=== PATIENT | female | born 1950 | race Caucasian/White ===

== ENCOUNTER 2016-03-13 07:29 | Outpatient (CLI) | payer OTHER ==
[~2016-03-13 07:29] MED LIST: ANASTROZOLE1 MG PO; ASPIRIN CHILDRE81 MG PO; BENZONATATE100 MG PO; COREG3.125 MG PO; DIPHENHYDRAMINE25 M1 PO; DOCUSATE SODIU100 MG PO; EQ LORATADINE10 MG PO; FLUOXETINE HCL20 MG PO; FUROSEMIDE20 MG PO; IBUPROFEN400 MG PO; LANOXIN EQUIVALENT PO; LEVAQUIN500 MG PO; LIDODERM5 % TOP; LISINOPRIL2.5 MG PO; NEXIUM2.5 MG PO; PHENERGAN PO; POTASSIUM CHLO20 ME4 PO; SPIRONOLACTONE25 MG PO; TOPROL XL50 MG PO; TRANSDERM-SCOP1.5 MG TOP; TUMS500 MG PO; [UNRECOGNIZED DRUG - OTHER] PO
== END 2016-03-13 23:00 ==
LOC: LAB SRH 07:29
DX: C50.912 Malignant neoplasm of unspecified site of left female breast (principal); C79.51 Secondary malignant neoplasm of bone; C78.00 Secondary malignant neoplasm of unspecified lung
CPT/HCPCS: 90074; 90100; 90272; 95059

== ENCOUNTER 2016-03-20 07:46 | Outpatient (CLI) | payer OTHER | END 2016-03-20 23:00 | LOC: LAB SRH 07:46 | DX: C50.912 Malignant neoplasm of unspecified site of left female breast (principal); C79.51 Secondary malignant neoplasm of bone; C78.00 Secondary malignant neoplasm of unspecified lung | CPT/HCPCS: 90074; 90100; 95059 ==

== ENCOUNTER 2016-03-26 11:55 | Outpatient (CLI) | payer OTHER | END 2016-03-26 23:00 | LOC: LAB SRH 11:55 | DX: C50.912 Malignant neoplasm of unspecified site of left female breast (principal); C79.51 Secondary malignant neoplasm of bone; C78.00 Secondary malignant neoplasm of unspecified lung | CPT/HCPCS: 90100; 90272; 95059 ==

== ENCOUNTER 2016-03-26 12:01 | Outpatient (CLI) | payer OTHER | END 2016-03-26 23:00 | LOC: LAB SRH 12:01 | DX: R79.89 Other specified abnormal findings of blood chemistry (principal) | CPT/HCPCS: 90074; 90100; 90272; 92715; 95059 ==

== ENCOUNTER 2016-04-02 15:58 | Outpatient (CLI) | payer OTHER | END 2016-04-02 23:00 | LOC: LAB SRH 15:58 | DX: C50.912 Malignant neoplasm of unspecified site of left female breast (principal); C79.51 Secondary malignant neoplasm of bone; C78.00 Secondary malignant neoplasm of unspecified lung | CPT/HCPCS: 90074; 90100; 90272; 95059 ==

== ENCOUNTER 2016-04-09 14:51 | Outpatient (CLI) | payer OTHER | END 2016-04-09 23:00 | LOC: LAB SRH 14:51 | DX: C50.912 Malignant neoplasm of unspecified site of left female breast (principal); C79.51 Secondary malignant neoplasm of bone; C78.00 Secondary malignant neoplasm of unspecified lung | CPT/HCPCS: 90074; 90100; 95059 ==

== ENCOUNTER 2016-04-11 15:10 | Emergency (ER) | payer OTHER ==
--- NOTE | 2016-04-11 16:39 | ED NURSING NOTES ---
Clinical Report - Nurses [facility] [address] [place] [address] 04/11/2016 15:11 [id number] Triage time 1514. Acuity: LEVEL 3. Chief Complaint: INJURY TO THE LEFT LEG. 15:14. MIKE COMA SCORE: Mike Coma Scale: 15- eyes open spontaneously (4); best verbal response- oriented x 4 (5); best motor response- obeys commands (6). --15:26 Yesenia Galvan R.N. 15:14 04/11/16. BP: 94/54. HR: 107. RR: 20. O2 saturation: 100%. Temp: 98.4 F. Pain level now: 0/10. --15:26 Yesenia Galvan R.N. Acuity: LEVEL 4. --15:42 Naima Bee R.N. Weight: 66.2 kg. Height/Length: 60 inches. BMI: 28.5. --15:22 Yesenia Galvan R.N. Medications Anastrozole Oral (Tablet 1 mg), at bedtime. Aspirin Low Dose Oral (Tablet Delayed Release 81 mg) 1 tablet. Carvedilol 3.125mg BID. Docusate Sodium Oral (Capsule 100 mg) 2 capsules, in the evening. FLUoxetine HCl Oral 60mg, at bedtime. Montelukast Sodium Oral (Tablet 10 mg), at bedtime. Nexium 24HR Oral 22.3mg, at bedtime. --15:21 Yesenia Galvan R.N. Allergies Erythromycin. Penicillins. Sulfa Antibiotics. Teramycin?. [place]. --15:21 Yesenia Galvan R.N. History Arrived by private vehicle. Historian: patient. Unaccompanied. Mechanism of injury: (dog bite to right calf). ( Pt has state 4 bone cancer, has low platelets, and is scheduled for 2 unit blood transfusion on Wednesday--worried about bleeding internally). SOCIAL HX: Never smoker. Occasional alcohol use. No drug use. --15:26 Yesenia Galvan R.N. PROBLEMS: Pleural Effusion. Bronchitis. Metastases to bone. Breast Cancer. Sciatica. Muscle spasms. Gastroesophageal Reflux Disease. --15:22 Yesenia Galvan R.N. ADDITIONAL SURGERIES: Hysterectomy. Lumpectomy of breast. Masiodectomy R ear. Mastoidectomy. --15:22 Yesenia Galvan R.N. Interventions ID band on patient. To treatment room. --15:26 Yesenia Galvan R.N. ID band on patient. To treatment room. --15:42 Naima Bee R.N. PHYSICAL ASSESSMENT 15:41 04/11/16. To room via wheelchair. GENERAL / NEURO / PSYCH: Oriented X 4. Alert. Appears in no acute distress. EXTREMITIES: Capillary refill is less than 2 seconds in the extremities. Extremity pulses are within normal limits. Neuro-vascular status intact to the extremity. Normal gait. Left leg: tenderness and ecchymosis of the lower leg. SKIN: Skin intact. Skin is warm and dry. --15:41 Naima Bee R.N. NURSING PROGRESS NOTES 15:20. ( 6 inch corrina placed over area as pressure dressing, no free bleeding noted, hematoma present). --15:27 Yesenia Galvan R.N. 15:42 04/11/16. Two patient identifiers checked. Call light placed in reach. Side rails up x 1. Bed placed in lowest position. Brakes of bed on. Patient ready for evaluation- chart flagged and ED physician and MARK UP DESIGNER notified. --15:42 Naima Bee R.N. DISPOSITION / DISCHARGE Departure time: 1654Apr 11 2016. Condition at departure: improved and stable. No learning barriers present. Discharge instructions provided and reviewed with the patient. Patient verbalized understanding. Written instructions provided in Yemeni. The patient was discharged by the nurse practitioner. She was discharged home. She left the Emergency Department in a wheelchair and via private vehicle. Patient driving. --17:52 Naima Bee R.N. 17:51 04/11/16. BP: 99/68. HR: 104. RR: 18. O2 saturation: 100% on room air. Temp: 98.6 F (oral). Pain level now: 0/10. --17:52 Naima Bee R.N. Locked/Released at 04/11/2016 17:53 by Naima Bee R.N.
--- NOTE | 2016-04-11 16:39 | ED NURSING NOTES ---
Clinical Report - Nurses [facility] [address] [place] [address] 04/11/2016 15:11 Patient: NORIS AUSTIN [facility] [id number] TRIAGE Triage time 1514. Acuity: LEVEL 3. Chief Complaint: INJURY TO THE LEFT LEG. 15:14. MIKE COMA SCORE: Mike Coma Scale: 15- eyes open spontaneously (4); best verbal response- oriented x 4 (5); best motor response- obeys commands (6). --15:26 Yesenia Galvan R.N. 15:14 04/11/16. BP: 94/54. HR: 107. RR: 20. O2 saturation: 100%. Temp: 98.4 F. Pain level now: 0/10. --15:26 Yesenia Galvan R.N. Acuity: LEVEL 4. --15:42 Naima Bee R.N. Weight: 66.2 kg. Height/Length: 60 inches. BMI: 28.5. --15:22 Yesenia Galvan R.N. Medications Anastrozole Oral (Tablet 1 mg), at bedtime. Aspirin Low Dose Oral (Tablet Delayed Release 81 mg) 1 tablet. Carvedilol 3.125mg BID. Docusate Sodium Oral (Capsule 100 mg) 2 capsules, in the evening. FLUoxetine HCl Oral 60mg, at bedtime. Montelukast Sodium Oral (Tablet 10 mg), at bedtime. Nexium 24HR Oral 22.3mg, at bedtime. --15:21 Yesenia Galvan R.N. Allergies Erythromycin. Penicillins. Sulfa Antibiotics. Teramycin?. [place]. --15:21 Yesenia Galvan R.N. History Arrived by private vehicle. Historian: patient. Unaccompanied. Mechanism of injury: (dog bite to right calf). ( Pt has state 4 bone cancer, has low platelets, and is scheduled for 2 unit blood transfusion on Wednesday--worried about bleeding internally). SOCIAL HX: Never smoker. Occasional alcohol use. No drug use. --15:26 Yesenia Galvan R.N. PROBLEMS: Pleural Effusion. Bronchitis. Metastases to bone. Breast Cancer. Sciatica. Muscle spasms. Gastroesophageal Reflux Disease. --15:22 Yesenia Galvan R.N. ADDITIONAL SURGERIES: Hysterectomy. Lumpectomy of breast. Masiodectomy R ear. Mastoidectomy. --15:22 Yesenia Galvan R.N. Interventions ID band on patient. To treatment room. --15:26 Yesenia Galvan R.N. ID band on patient. To treatment room. --15:42 Naima Bee R.N. PHYSICAL ASSESSMENT 15:41 04/11/16. To room via wheelchair. GENERAL / NEURO / PSYCH: Oriented X 4. Alert. Appears in no acute distress. EXTREMITIES: Capillary refill is less than 2 seconds in the extremities. Extremity pulses are within normal limits. Neuro-vascular status intact to the extremity. Normal gait. Left leg: tenderness and ecchymosis of the lower leg. SKIN: Skin intact. Skin is warm and dry. --15:41 Naima Bee R.N. NURSING PROGRESS NOTES 15:20. ( 6 inch corrina placed over area as pressure dressing, no free bleeding noted, hematoma present). --15:27 Yesenia Galvan R.N. 15:42 04/11/16. Two patient identifiers checked. Call light placed in reach. Side rails up x 1. Bed placed in lowest position. Brakes of bed on. Patient ready for evaluation- chart flagged and ED physician and BIAS CUTTER notified. --15:42 Naima Bee R.N. DISPOSITION / DISCHARGE Departure time: 1654Apr 11 2016. Condition at departure: improved and stable. No learning barriers present. Discharge instructions provided and reviewed with the patient. Patient verbalized understanding. Written instructions provided in Niuean. The patient was discharged by the nurse practitioner. She was discharged home. She left the Emergency Department in a wheelchair and via private vehicle. Patient driving. --17:52 Naima Bee R.N. 17:51 04/11/16. BP: 99/68. HR: 104. RR: 18. O2 saturation: 100% on room air. Temp: 98.6 F (oral). Pain level now: 0/10. --17:52 Naima Bee R.N. Locked/Released at 04/11/2016 17:53 by Naima Bee R.N.
--- NOTE | 2016-04-11 16:39 | ED CLINICAL REPORT ---
Clinical Report - Physicians/Mid Levels [facility] [address] [place] [address] 04/11/2016 15:11 Patient: NORIS AUSTIN Time Seen: 16:18; initial patient contact, initial documentation, patient care assumed. Arrived- By private vehicle. Historian- patient. HISTORY OF PRESENT ILLNESS Location of injuries- left leg. Chief Complaint: DOG BITE. The injury occurred just prior to arrival. The animal reportedly appeared well, is up to date on immunizations and can be observed for ten days. Occurred at home. This was an "unprovoked" attack. (holding dog while daughter vaccuumed, dog spooked, dog was dropped or jumped out of arms and bit leg). No fainting episodes or difficulty breathing. 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 REVIEW OF SYSTEMS No swelling, numbness, difficulty breathing or chest pain. All systems otherwise negative, except as recorded above. PAST HISTORY See nurses notes. PROBLEMS: Pleural Effusion. Bronchitis. Metastases to bone. Breast Cancer. Sciatica. Muscle spasms. Gastroesophageal Reflux Disease. --15:22 Yesenia Galvan R.N. ADDITIONAL SURGERIES: Hysterectomy. Lumpectomy of breast. Masiodectomy R ear. Mastoidectomy. --15:22 Yesenia Galvan R.N. SOCIAL HISTORY Never smoker. Occasional alcohol use. No drug use. No recent travel. Is a local resident. FAMILY HISTORY No significant family medical history. ADDITIONAL NOTES The nursing notes have been reviewed with agreement regarding the chief complaint, HPI, ROS, PMH and patient medications and allergies. PHYSICAL EXAM Vital Signs: 04/11/2016 15:14 BP: 94/54. HR: 107. RR: 20. O2 saturation: 100%. Temp: 98.4 F. Pain level now: 0/10. Have been reviewed as abnormal and appear to be correct. Hypotensive. Tachycardic. Respiratory rate normal. Temperature normal. Appearance: Alert. Oriented X3. No acute distress. Head: Head normal on inspection and non-tender. Eyes: Eyes normal inspection. Skin: Skin intact. Skin warm and dry. Normal skin color. Normal skin turgor. Extremities: Abnormal inspection. Extremities not atraumatic. Pelvis stable. Left leg: mild tenderness and small ecchymosis located in the posterior and medial aspect of mid leg. Neurovascular intact distally. (contusion noted to back of leg, no break in skin, skin intact). No erythema, swelling, laceration, abrasion or puncture wound. No foreign body or deformity. No limitation of weight bearing. No lower extremity edema. Neuro: Oriented X 3. No motor deficit. No sensory deficit. PROGRESS AND PROCEDURES Patient counseled in person regarding the patient's stable condition and diagnosis. 16:38. Differential Diagnosis: Other possible considerations: dog bite, contusion, pw, cellulitis. Above considerations are based on history and physical exam. Differential diagnosis was discussed with patient. Disposition: Discharged home in good and improved condition (16:38). Condition: good and stable. CLINICAL IMPRESSION Single contusion to the left lower leg.No hematoma or skin abrasion. Single dog bite to the left lower leg. INSTRUCTIONS Wear elastic wrap (Archie wrap) as directed for three days until better. Elevate affected areas above chest level for two days until better. Warnings: GENERAL WARNINGS: Return or contact your physician immediately if your condition worsens or changes unexpectedly, if not improving as expected, or if other problems arise. Specifically return if bleeding worsens. Follow-up: Follow up with your doctor in about two days even if well. Call for an appointment. Summary of care provided to patient. Understanding of the discharge instructions verbalized by patient. (Electronically signed by Radha Hewitt A.R.N.P. 04/11/2016 17:12)
--- NOTE | 2016-04-11 16:39 | ED CLINICAL REPORT ---
Clinical Report - Physicians/Mid Levels [facility] [address] [place] [address] 04/11/2016 15:11 Patient: NORIS AUSTIN Time Seen: 16:18; initial patient contact, initial documentation, patient care assumed. Arrived- By private vehicle. Historian- patient. HISTORY OF PRESENT ILLNESS Location of injuries- left leg. Chief Complaint: DOG BITE. The injury occurred just prior to arrival. The animal reportedly appeared well, is up to date on immunizations and can be observed for ten days. Occurred at home. This was an "unprovoked" attack. (holding dog while daughter vaccuumed, dog spooked, dog was dropped or jumped out of arms and bit leg). No fainting episodes or difficulty breathing. 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 REVIEW OF SYSTEMS No swelling, numbness, difficulty breathing or chest pain. All systems otherwise negative, except as recorded above. PAST HISTORY See nurses notes. PROBLEMS: Pleural Effusion. Bronchitis. Metastases to bone. Breast Cancer. Sciatica. Muscle spasms. Gastroesophageal Reflux Disease. --15:22 Yesenia Galvan R.N. ADDITIONAL SURGERIES: Hysterectomy. Lumpectomy of breast. Masiodectomy R ear. Mastoidectomy. --15:22 Yesenia Galvan R.N. SOCIAL HISTORY Never smoker. Occasional alcohol use. No drug use. No recent travel. Is a local resident. FAMILY HISTORY No significant family medical history. ADDITIONAL NOTES The nursing notes have been reviewed with agreement regarding the chief complaint, HPI, ROS, PMH and patient medications and allergies. PHYSICAL EXAM Vital Signs: 04/11/2016 15:14 BP: 94/54. HR: 107. RR: 20. O2 saturation: 100%. Temp: 98.4 F. Pain level now: 0/10. Have been reviewed as abnormal and appear to be correct. Hypotensive. Tachycardic. Respiratory rate normal. Temperature normal. Appearance: Alert. Oriented X3. No acute distress. Head: Head normal on inspection and non-tender. Eyes: Eyes normal inspection. Skin: Skin intact. Skin warm and dry. Normal skin color. Normal skin turgor. Extremities: Abnormal inspection. Extremities not atraumatic. Pelvis stable. Left leg: mild tenderness and small ecchymosis located in the posterior and medial aspect of mid leg. Neurovascular intact distally. (contusion noted to back of leg, no break in skin, skin intact). No erythema, swelling, laceration, abrasion or puncture wound. No foreign body or deformity. No limitation of weight bearing. No lower extremity edema. Neuro: Oriented X 3. No motor deficit. No sensory deficit. PROGRESS AND PROCEDURES Patient counseled in person regarding the patient's stable condition and diagnosis. 16:38. Differential Diagnosis: Other possible considerations: dog bite, contusion, pw, cellulitis. Above considerations are based on history and physical exam. Differential diagnosis was discussed with patient. Disposition: Discharged home in good and improved condition (16:38). Condition: good and stable. CLINICAL IMPRESSION Single contusion to the left lower leg.No hematoma or skin abrasion. Single dog bite to the left lower leg. INSTRUCTIONS Wear elastic wrap (Archie wrap) as directed for three days until better. Elevate affected areas above chest level for two days until better. Warnings: GENERAL WARNINGS: Return or contact your physician immediately if your condition worsens or changes unexpectedly, if not improving as expected, or if other problems arise. Specifically return if bleeding worsens. Follow-up: Follow up with your doctor in about two days even if well. Call for an appointment. Summary of care provided to patient. Understanding of the discharge instructions verbalized by patient. (Electronically signed by Radha Hewitt A.R.N.P. 04/11/2016 17:12)
--- NOTE | 2016-04-11 17:53 | ED MAR SUMMARY ---
..... Medication Administration Record [facility] [address] [place], [place] [id number] Patient: NORIS AUSTIN Visit ID: [id number] 66y, F Weight: 66.2 kg Height/Length: 60 in BMI: 28.5 ALLERGIES: Erythromycin, Penicillins, Sulfa Antibiotics, Teramycin?, [place]
--- NOTE | 2016-04-11 17:53 | ED DISCHARGE INSTRUCTIONS ---
Patient: NORIS AUSTIN General Instructions [facility] VisitID: [id number] [place] [address] 66y, F Registration Date/Time: 04/11/2016 Single contusion to the left lower leg.No hematoma or skin abrasion. Single dog bite to the left lower leg. INSTRUCTIONS Wear elastic wrap (Archie wrap) as directed for three days until better. Elevate affected areas above chest level for two days until better. Warnings: GENERAL WARNINGS: Return or contact your physician immediately if your condition worsens or changes unexpectedly, if not improving as expected, or if other problems arise. Specifically return if bleeding worsens. Follow-up: Follow up with your doctor in about two days even if well. Call for an appointment. Summary of care provided to patient. Understanding of the discharge instructions verbalized by patient. ADDITIONAL INFORMATION Dog Bite If a dog has bitten you and the wound is deep enough to break the skin, an infection may occur. Therefore, you should watch for the warning signs listed below. The doctor may not close the wound completely. This is to allow fluid to drain in the event of an infection. Home Care Watch the wound for signs of infection listed below. In certain types of bites, antibiotics may be prescribed. Begin taking these as soon as possible, as directed until they are all gone. Rabies Prevention If you live in an area where rabies occurs in wild animals, the rabies virus can be passed to cats and dogs. An infected animal can pass the rabies virus to you during a bite. If ahealthy-looking pet dog has bitten you, it should be kept in a secure area for the next 10 days to watch for signs of illness. If the pet systems trainer wont cooperate with you, contact the [facility] animal control department (or local law enforcement). If the animal becomes ill or dies [id number] days, contact your animal control department at once. The animal must be tested for rabies. If the animal stays healthy for the next 10 days, then there is no danger of rabies in the dog or you. Pets fully vaccinated against rabies (2 shots) are at very low risk for the infection. However, because human rabies is almost always fatal, any biting dog should be kept in confinement for 10 days as an extra precaution. If a stray dog bit you, contact the animal control department. They can provide information on capture, quarantine, and animal rabies testing. If you are unable to locate the animal that bit you in the next 2days, and if rabies exists in your region, you must be evaluated for the rabies vaccine series. Contact your doctor or return here promptly. All animal bites should be reported to the [facility] animal control department. If you were not given a form to fill out, you can report it yourself by calling. Follow Up with your doctor as advised. Most skin wounds heal within 10 days. However, an infection may occur even with proper treatment. Check your woundevery 6 hoursfor 2 days, then at least once a day for the next two days for the signs of infection listed below. Get Prompt Medical Attention if any of the following occur: Signs of infection: Spreading redness Increased pain or swelling Fever of 100.4F (38C) or higher, or as directed by your healthcare provider Colored fluid or pus draining from the wound Headache, confusion, strange behavior, or a seizure (signs of a rabies infection) Contusion:Lower Extremity You have a CONTUSION of your LOWER extremity (leg, knee, ankle, foot, or toes). This causes local pain, swelling and sometimes bruising. There are no broken bones. This injury may take from a few days to a few weeks to heal. Home Care: 1) Keep your leg elevated to reduce pain and swelling. When sleeping, place a pillow under the injured leg. When sitting, support the injured leg so it is level with your waist. This is very important during the first 48 hours. 2) If CRUTCHES have been advised, do not bear full weight on the injured leg until you can do so without pain. You may return to sports when you are able to hop and run on the injured leg without pain. 3) Apply an ice pack (ice cubes in a plastic bag, wrapped in a towel) over the injured area for 20 minutes every 1-2 hours the first day for pain relief. Continue this 3-4 times a day until the pain and swelling goes away. 4) You may use acetaminophen (Tylenol) or ibuprofen (Motrin, Advil) to control pain, unless another pain medicine was prescribed. [ NOTE : If you have chronic liver or kidney disease or ever had a stomach ulcer or GI bleeding, talk with your doctor before using these medicines.] Follow Up with your doctor or this facility if you are not starting to improve within the next THREE days. [NOTE: If X-rays were taken, they will be reviewed by a radiologist. You will be notified of any new findings that may affect your care.] Get Prompt Medical Attention if any of the following occur: -- Pain or swelling increases -- Toes become cold, blue, numb or tingly -- Redness, warmth or drainage from the skin Archie Wrap An "Archie Bandage" refers to any elastic bandage wrap (2-6" wide). This is used to apply support and compression to an arm or leg. It will help prevent or reduce swelling also. When applying the bandage, it should not be stretched too tightly. A tight Archie Wrap will reduce circulation and cause tingling or numbness in the hand or foot. It may increase the pain under the bandage. If you get these symptoms, remove the wrap and rest the limb. Symptoms should go away within 1-2 hours. Once symptoms go away, reapply the bandage with less stretch. If symptoms do not go away after 1-2 hours with the bandage off, call your doctor or return to this facility promptly. You have been given the following additional information: Dog Bite Contusion, Lower Extremity Archie Wrap (Electronically signed by Radha Hewitt A.R.N.P. 04/11/2016 17:12)
--- NOTE | 2016-04-11 17:53 | ED MED RECONCILIATION SUMMARY ---
Patient: NORMANNORIS LEMUS Medication Reconciliation Report [facility] VisitID: [id number] [address] [place] [address] 66y, F Registration Date/Time: 04/11/2016 Weight: 66.2 kg Height/Length: 60 in. BMI: 28.5 ALLERGIES: Erythromycin, Penicillins, Sulfa Antibiotics, Teramycin?, [place] The patient's Home Medications are listed below: THE FOLLOWING MEDICATIONS NEED TO BE RECONCILED: Anastrozole Oral (1 mg), at bedtime Aspirin Low Dose Oral (81 mg) 1 tablet Carvedilol 3.125mg BID Docusate Sodium Oral (100 mg) 2 capsules, in the evening FLUoxetine HCl Oral 60mg, at bedtime Montelukast Sodium Oral (10 mg), at bedtime Nexium 24HR Oral 22.3mg, at bedtime The source(s) of the original Home Medication information: Not obtained. The following Medications were given to the patient in the Emergency Department: None. The following Medications were prescribed to the patient: None.
--- NOTE | 2016-04-11 17:53 | ED MED RECONCILIATION SUMMARY ---
Patient: NORMANNORIS LEMUS Medication Reconciliation Report [facility] VisitID: [id number] [address] [place] [address] 66y, F Registration Date/Time: 04/11/2016 Weight: 66.2 kg Height/Length: 60 in. BMI: 28.5 ALLERGIES: Erythromycin, Penicillins, Sulfa Antibiotics, Teramycin?, [place] The patient's Home Medications are listed below: THE FOLLOWING MEDICATIONS NEED TO BE RECONCILED: Anastrozole Oral (1 mg), at bedtime Aspirin Low Dose Oral (81 mg) 1 tablet Carvedilol 3.125mg BID Docusate Sodium Oral (100 mg) 2 capsules, in the evening FLUoxetine HCl Oral 60mg, at bedtime Montelukast Sodium Oral (10 mg), at bedtime Nexium 24HR Oral 22.3mg, at bedtime The source(s) of the original Home Medication information: Not obtained. The following Medications were given to the patient in the Emergency Department: None. The following Medications were prescribed to the patient: None.
--- NOTE | 2016-04-11 17:53 | ED DISCHARGE INSTRUCTIONS ---
Patient: NORIS AUSTIN General Instructions [facility] VisitID: [id number] [place] [address] 66y, F Registration Date/Time: 04/11/2016 Single contusion to the left lower leg.No hematoma or skin abrasion. Single dog bite to the left lower leg. INSTRUCTIONS Wear elastic wrap (Archie wrap) as directed for three days until better. Elevate affected areas above chest level for two days until better. Warnings: GENERAL WARNINGS: Return or contact your physician immediately if your condition worsens or changes unexpectedly, if not improving as expected, or if other problems arise. Specifically return if bleeding worsens. Follow-up: Follow up with your doctor in about two days even if well. Call for an appointment. Summary of care provided to patient. Understanding of the discharge instructions verbalized by patient. ADDITIONAL INFORMATION Dog Bite If a dog has bitten you and the wound is deep enough to break the skin, an infection may occur. Therefore, you should watch for the warning signs listed below. The doctor may not close the wound completely. This is to allow fluid to drain in the event of an infection. Home Care Watch the wound for signs of infection listed below. In certain types of bites, antibiotics may be prescribed. Begin taking these as soon as possible, as directed until they are all gone. Rabies Prevention If you live in an area where rabies occurs in wild animals, the rabies virus can be passed to cats and dogs. An infected animal can pass the rabies virus to you during a bite. If ahealthy-looking pet dog has bitten you, it should be kept in a secure area for the next 10 days to watch for signs of illness. If the pet clinical practitioner wont cooperate with you, contact the [facility] animal control department (or local law enforcement). If the animal becomes ill or dies [id number] days, contact your animal control department at once. The animal must be tested for rabies. If the animal stays healthy for the next 10 days, then there is no danger of rabies in the dog or you. Pets fully vaccinated against rabies (2 shots) are at very low risk for the infection. However, because human rabies is almost always fatal, any biting dog should be kept in confinement for 10 days as an extra precaution. If a stray dog bit you, contact the animal control department. They can provide information on capture, quarantine, and animal rabies testing. If you are unable to locate the animal that bit you in the next 2days, and if rabies exists in your region, you must be evaluated for the rabies vaccine series. Contact your doctor or return here promptly. All animal bites should be reported to the [facility] animal control department. If you were not given a form to fill out, you can report it yourself by calling. Follow Up with your doctor as advised. Most skin wounds heal within 10 days. However, an infection may occur even with proper treatment. Check your woundevery 6 hoursfor 2 days, then at least once a day for the next two days for the signs of infection listed below. Get Prompt Medical Attention if any of the following occur: Signs of infection: Spreading redness Increased pain or swelling Fever of 100.4F (38C) or higher, or as directed by your healthcare provider Colored fluid or pus draining from the wound Headache, confusion, strange behavior, or a seizure (signs of a rabies infection) Contusion:Lower Extremity You have a CONTUSION of your LOWER extremity (leg, knee, ankle, foot, or toes). This causes local pain, swelling and sometimes bruising. There are no broken bones. This injury may take from a few days to a few weeks to heal. Home Care: 1) Keep your leg elevated to reduce pain and swelling. When sleeping, place a pillow under the injured leg. When sitting, support the injured leg so it is level with your waist. This is very important during the first 48 hours. 2) If CRUTCHES have been advised, do not bear full weight on the injured leg until you can do so without pain. You may return to sports when you are able to hop and run on the injured leg without pain. 3) Apply an ice pack (ice cubes in a plastic bag, wrapped in a towel) over the injured area for 20 minutes every 1-2 hours the first day for pain relief. Continue this 3-4 times a day until the pain and swelling goes away. 4) You may use acetaminophen (Tylenol) or ibuprofen (Motrin, Advil) to control pain, unless another pain medicine was prescribed. [ NOTE : If you have chronic liver or kidney disease or ever had a stomach ulcer or GI bleeding, talk with your doctor before using these medicines.] Follow Up with your doctor or this facility if you are not starting to improve within the next THREE days. [NOTE: If X-rays were taken, they will be reviewed by a radiologist. You will be notified of any new findings that may affect your care.] Get Prompt Medical Attention if any of the following occur: -- Pain or swelling increases -- Toes become cold, blue, numb or tingly -- Redness, warmth or drainage from the skin Archie Wrap An "Archie Bandage" refers to any elastic bandage wrap (2-6" wide). This is used to apply support and compression to an arm or leg. It will help prevent or reduce swelling also. When applying the bandage, it should not be stretched too tightly. A tight Archie Wrap will reduce circulation and cause tingling or numbness in the hand or foot. It may increase the pain under the bandage. If you get these symptoms, remove the wrap and rest the limb. Symptoms should go away within 1-2 hours. Once symptoms go away, reapply the bandage with less stretch. If symptoms do not go away after 1-2 hours with the bandage off, call your doctor or return to this facility promptly. You have been given the following additional information: Dog Bite Contusion, Lower Extremity Archie Wrap (Electronically signed by Radha Hewitt A.R.N.P. 04/11/2016 17:12)
--- NOTE | 2016-04-11 17:53 | ED MAR SUMMARY ---
..... Medication Administration Record [facility] [address] [place], [place] [id number] Patient: NORIS AUSTIN Visit ID: [id number] 66y, F Weight: 66.2 kg Height/Length: 60 in BMI: 28.5 ALLERGIES: Erythromycin, Penicillins, Sulfa Antibiotics, Teramycin?, [place]
== END 2016-04-11 16:55 | disposition home or self-care (01) ==
LOC: ED SRH 15:10
DX: S81.852A Open bite, left lower leg, initial encounter (principal); Z88.2 Allergy status to sulfonamides; S80.12XA Contusion of left lower leg, initial encounter; W54.0XXA Bitten by dog, initial encounter; Y92.009 Unspecified place in unspecified non-institutional (private) residence as the place of occurrence of the external cause; Y99.9 Unspecified external cause status; Y93.9 Activity, unspecified; Z79.82 Long term (current) use of aspirin; Z79.899 Other long term (current) drug therapy; Z88.0 Allergy status to penicillin

== ENCOUNTER 2016-04-16 15:39 | Outpatient (CLI) | payer OTHER | END 2016-04-16 23:00 | LOC: LAB SRH 15:39 | DX: C50.912 Malignant neoplasm of unspecified site of left female breast (principal) | CPT/HCPCS: 90074; 90100; 90272; 91643; 95059 ==

== ENCOUNTER 2016-04-22 14:38 | Outpatient (CLI) | payer OTHER | END 2016-04-22 23:00 | LOC: LAB SRH 14:38 | DX: C50.912 Malignant neoplasm of unspecified site of left female breast (principal); C79.51 Secondary malignant neoplasm of bone; C78.00 Secondary malignant neoplasm of unspecified lung | CPT/HCPCS: 90074; 90100; 95059 ==

== ENCOUNTER 2016-04-30 16:56 | Outpatient (CLI) | payer OTHER | END 2016-04-30 23:00 | disposition home or self-care (01) | LOC: LAB SRH 16:56 | DX: C50.912 Malignant neoplasm of unspecified site of left female breast (principal); C79.51 Secondary malignant neoplasm of bone; C78.00 Secondary malignant neoplasm of unspecified lung | CPT/HCPCS: 90074; 90100; 95059 ==

== ENCOUNTER 2016-05-07 11:00 | Outpatient (CLI) | payer OTHER | END 2016-05-07 23:00 | LOC: LAB SRH 11:00 | DX: C50.912 Malignant neoplasm of unspecified site of left female breast (principal); C79.51 Secondary malignant neoplasm of bone; C78.00 Secondary malignant neoplasm of unspecified lung | CPT/HCPCS: 90074; 90100; 95059 ==

== ENCOUNTER 2016-05-13 09:42 | Outpatient (CLI) | payer OTHER | END 2016-05-13 23:00 | LOC: LAB SRH 09:42 | DX: C50.912 Malignant neoplasm of unspecified site of left female breast (principal); C79.51 Secondary malignant neoplasm of bone; C78.00 Secondary malignant neoplasm of unspecified lung | CPT/HCPCS: 90074; 90100; 90272; 91282; 92668; 92670; 95059 ==

== ENCOUNTER 2016-05-21 13:21 | Outpatient (CLI) | payer OTHER | END 2016-05-21 23:00 | LOC: LAB SRH 13:21 | DX: C50.912 Malignant neoplasm of unspecified site of left female breast (principal); C79.51 Secondary malignant neoplasm of bone; C78.00 Secondary malignant neoplasm of unspecified lung | CPT/HCPCS: 90074; 90100; 95059 ==

== ENCOUNTER 2016-05-27 11:30 | Outpatient (CLI) | payer OTHER ==
--- NOTE | 2016-05-27 14:06 | DIAGNOSTIC IMAGING REPORT ---
PROCEDURE: CT THORAX ABD PELVIS W/O CONT INDICATION: NEG LEFT BREAST CARCINOMA W/METS TO BONES AND LUNGS TECHNIQUE: Axial CT images were obtained of the thorax, abdomen, and pelvis with sagittal and coronal reformations. COMPARISON: 09/04/2015 FINDINGS: THORAX: Left IJ Mediport in place. Surgical clips in the left axilla. Heterogeneous breast tissue bilaterally. Moderate size hiatal hernia. Mild cardiomegaly. Normal thyroid gland. Left apical and lingular pleural parenchymal scarring. Minor patchy ground-glass opacities at both bases, right greater than left in both lower lobes, nonspecific. No new nodule, effusion, or mass. Innumerable sclerotic lesions throughout the osseous structures with a compression fracture of T11. ABDOMEN: Ill-defined hypodensities in the right lobe of the liver near the dome, the largest measuring 2.0 cm, stable. Fatty change to the proximal pancreas. The gallbladder, adrenal glands, spleen, kidneys, retroperitoneal vasculature and ureters appear normal. aortic atherosclerotic calcification. No unusual calcifications. No suspicious mass or adenopathy. The stomach and other bowel loops appear normal. No mesenteric inflammation. Intact anterior abdominal wall. No free fluid or free air. PELVIS: Status post hysterectomy. Minor sigmoid diverticulosis. Normal appendix, pelvic bowel loops, and colon. Normal partially filled urinary bladder, pelvic vessels, and lymph nodes. No suspicious adenopathy, soft tissue mass, or free pelvic fluid. Extensive osseous metastasis with stable superior endplate compressions L3-L5. IMPRESSION: 1. Moderate size hiatal hernia, enlarged considerably since the previous study. 2. New mild patchy bilateral lower lobe parenchymal opacities, likely infectious or inflammatory. New neoplastic change is less likely but cannot be entirely excluded. Correlate clinically. 3. Stable cardiomegaly. 4. Osseous metastatic disease. 5. No evidence of new metastases in the abdomen or pelvis. 6. Surgical changes of left lumpectomy and axillary dissection. All CT scans at this facility use dose modulation, iterative reconstruction, and/or weight-based dosing when appropriate to reduce radiation dose to as low as reasonably achievable.
== END 2016-05-27 23:00 ==
LOC: CT SRH 11:30
DX: C50.912 Malignant neoplasm of unspecified site of left female breast (principal); C79.51 Secondary malignant neoplasm of bone; C78.00 Secondary malignant neoplasm of unspecified lung; K44.9 Diaphragmatic hernia without obstruction or gangrene; Z98.890 Other specified postprocedural states
CPT/HCPCS: 90074; 90100; 95059

== ENCOUNTER 2016-06-04 15:09 | Outpatient (CLI) | payer OTHER | END 2016-06-04 23:00 | LOC: LAB SRH 15:09 | DX: C50.912 Malignant neoplasm of unspecified site of left female breast (principal); C79.51 Secondary malignant neoplasm of bone; C78.00 Secondary malignant neoplasm of unspecified lung | CPT/HCPCS: 90100; 95059 ==

== ENCOUNTER 2016-06-10 13:33 | Outpatient (CLI) | payer OTHER | END 2016-06-10 23:00 | LOC: LAB SRH 13:33 | DX: C50.912 Malignant neoplasm of unspecified site of left female breast (principal); C79.51 Secondary malignant neoplasm of bone; C78.00 Secondary malignant neoplasm of unspecified lung | CPT/HCPCS: 90074; 90100; 90272; 95059 ==

== ENCOUNTER → 2016-06-17 | Outpatient (CLI) | payer OTHER | LOC: LAB SRH 09:52 | DX: C50.912 Malignant neoplasm of unspecified site of left female breast (principal); C79.51 Secondary malignant neoplasm of bone; C78.00 Secondary malignant neoplasm of unspecified lung | CPT/HCPCS: 90074; 90100; 95059 ==

== ENCOUNTER 2016-06-24 10:40 | Outpatient (CLI) | payer OTHER | END 2016-06-24 23:00 | LOC: LAB SRH 10:40 | DX: C50.912 Malignant neoplasm of unspecified site of left female breast (principal); C79.51 Secondary malignant neoplasm of bone; C78.00 Secondary malignant neoplasm of unspecified lung | CPT/HCPCS: 90100; 95059 ==

== ENCOUNTER 2016-06-24 10:51 | Outpatient (CLI) | payer OTHER | END 2016-06-24 23:00 | LOC: LAB SRH 10:51 | DX: C50.919 Malignant neoplasm of unspecified site of unspecified female breast (principal); C79.9 Secondary malignant neoplasm of unspecified site | CPT/HCPCS: 90074; 90648; 93140 ==

== ENCOUNTER 2016-06-24 19:53 | Emergency (ER) | payer OTHER ==
--- NOTE | 2016-06-24 20:41 | ED ORDER SUMMARY ---
..... Patient: NORIS AUSTIN OrderSheet [facility] VisitID: [id number] [place] [address] 66y, F Registration Date/Time: 06/24/2016 ORDER SHEET Weight: 65.3 kg (stated) Allergies: Erythromycin, Penicillins, Sulfa Antibiotics, Teramycin?, [place] GENERAL ORDERS: MEDICATION ORDERS: Prednisone PO 60 mg (NOW) (20:25 06/24/2016 [place] GOTTLIEB) (Ack 20:36 Александр MistryN.) (20:44 Александр Celeste.N.) Benadryl PO 50 mg (NOW) (20:25 06/24/2016 [place] GOTTLIEB) (Ack 20:36 Александр R.N.) (20:44 Александр R.N.) IV FLUIDS: ORDER SHEET NOTES: [Electronically signed by Ramiro Salas R.N. (21:01 06/24/2016)] [Electronically signed by Siddhartha Garcia DO (22:54 06/24/2016)] [Electronically locked/signed by Ramiro Salas R.N. (21:01 06/24/2016)]
--- NOTE | 2016-06-24 20:41 | ED ORDER SUMMARY ---
..... Patient: NORIS AUSTIN OrderSheet [facility] VisitID: [id number] [place] [address] 66y, F Registration Date/Time: 06/24/2016 ORDER SHEET Weight: 65.3 kg (stated) Allergies: Erythromycin, Penicillins, Sulfa Antibiotics, Teramycin?, [place] GENERAL ORDERS: MEDICATION ORDERS: Prednisone PO 60 mg (NOW) (20:25 06/24/2016 [place] GOTTLIEB) (Ack 20:36 Александр MistryN.) (20:44 Александр Celeste.N.) Benadryl PO 50 mg (NOW) (20:25 06/24/2016 [place] GOTTLIEB) (Ack 20:36 Александр R.N.) (20:44 Александр R.N.) IV FLUIDS: ORDER SHEET NOTES: [Electronically signed by Ramiro Salas R.N. (21:01 06/24/2016)] [Electronically signed by Siddhartha Garcia DO (22:54 06/24/2016)] [Electronically locked/signed by Ramiro Salas R.N. (21:01 06/24/2016)]
--- NOTE | 2016-06-24 20:41 | ED CLINICAL REPORT ---
Clinical Report - Physicians/Mid Levels [facility] [address] [place] [address] 06/24/2016 19:52 Patient: NORIS AUSTIN Time Seen: 20:16. Arrived- By private vehicle. Historian- patient. HISTORY OF PRESENT ILLNESS Chief Complaint: SKIN RASH. This started today and is still present. It was gradual in onset and has been waxing/waning. It is described as itchy. Not painful. It has been located on the trunk. No cause has been identified. She has recently taken an antibiotic. Similar symptoms previously: None. Recent medical care: The patient was seen recently in a clinic. REVIEW OF SYSTEMS No fever, chills, sore throat, difficulty breathing or hoarseness. No headache, chest pain, abdominal pain, nausea or diarrhea. No difficulty with urination or vomiting. She has had a mild nonproductive cough. It has been similar to previous symptoms. All systems otherwise negative, except as recorded above. PAST HISTORY Problems: Pleural Effusion. Chest Pain. Bronchitis. Vomiting. Metastases to bone. Breast Cancer. Immunizations. Sciatica. Muscle spasms. Gastroesophageal Reflux Disease. Cancer [Resolved]. Surgeries: Hysterectomy. Lumpectomy of breast. Masiodectomy R ear. Mastoidectomy. SOCIAL HISTORY Never smoker. Occasional alcohol use. No drug use. Is a local resident. ADDITIONAL NOTES The nursing notes have been reviewed. PHYSICAL EXAM Vital Signs: 06/24/2016 19:57 BP: 127/61. HR: 103. RR: 15. O2 saturation: 99%. Temp: 98.4 F. Pain level now: 0/10. Appearance: Alert. Oriented X3. Patient in mild distress. Eyes: Conjunctivae and eyelids normal. ENT: Pharynx normal. Neck: Neck supple. CVS: Normal heart rate and rhythm. Heart sounds normal. Respiratory: No respiratory distress. No wheezes. Abdomen: Nontender. No organomegaly. Skin: No cyanosis. Normal skin turgor. No cellulitis. Rash present on the chest and abdomen. Rash present on the right thigh and left thigh. The rash is macular, urticarial and erythematous. Not vesicular, pustular, bullous or petechial. No abscess. Extremities: Extremities nontender. No calf tenderness. Neuro: Oriented X 3. No motor deficit. LABS, X-RAYS, AND EKG Pulse Oximetry: 06/24/2016 19:57 O2 saturation: 99%. (FIO2 - room air). Interpretation: normal. PROGRESS AND PROCEDURES Course of Care: Benadryl 50 mg PO given. Prednisone 60 mg PO given. Most consistent with allergy / urticaria. No anaphylaxsis or airway issues now- May be due to levofloxacin - pt will stop this - she stares that she is nit even sure if she is supposed to be taking it any more. Of course there are many possible environmental allergens including other medications or this could be a drug eruption or complication of her cancer. There is no sign of Zoster or infection now. Patient/family counseled. Old ED records reviewed. Disposition: Discharged. Condition: stable and improved. CLINICAL IMPRESSION Acute hives secondary to allergy and unknown cause. History of metastatic breast cancer. INSTRUCTIONS Drink plenty of fluids. Warnings: Further evaluation is necessary. It is very important to follow up with a physician. SEDATIVE MEDICATION: You were given sedative medication during your visit. Do not drive or operate dangerous machinery. GENERAL WARNINGS: Return or contact your physician immediately if your condition worsens or changes unexpectedly, if not improving as expected, or if other problems arise. Specifically return if breathing difficulty or fever. Your Current Medications: STOP TAKING THE FOLLOWING MEDICATIONS: Levofloxacin Oral : Tablet 500 mg, 1 tablet. CONTINUE TAKING THE FOLLOWING MEDICATIONS: Aspirin Low Dose Oral : Tablet Delayed Release 81 mg, 1 tablet. Carvedilol 3.125mg BID*. Docusate Sodium Oral : Capsule 100 mg, 2 capsules in the evening. FLUoxetine HCl Oral : 60mg at bedtime. Ibrance* : Started: will start in 2 days, breast CA. Interferon Beta-1a Intramuscular : Kit 30 mcg/0.5mL, 0.5ml 3 times weekly, Last: 3 nights ago. Iron Oral : 65mg 2-3 times daily. Lisinopril Oral : Tablet 5 mg, 1 tablet daily. Nexium 24HR Oral : 22.3mg at bedtime. PredniSONE Oral : Tablet 10 mg, 4 tablets daily. Prescription Medications: Prednisone 10 mg tablets: take 4 orally every day for 5 days, then 2 every day for 3 days, then 1 every day for 2 days. Dispense twenty-eight (28). No refills. OTC Medications: Benadryl Allergy 25 mg (available over the counter): take 1-2 orally every 8 hours as needed for itching or allergies. Dispense thirty (30). No refill. Substitution is permissible. Follow-up: Follow up with your doctor tomorrow. (Electronically signed by Siddhartha Garcia DO 06/24/2016 22:54)
--- NOTE | 2016-06-24 20:41 | ED NURSING NOTES ---
Clinical Report - Nurses [facility] [address] [place] [address] 06/24/2016 19:52 Patient: NORIS AUSTIN TRIAGE Triage time 19:59. Acuity: LEVEL 4. Chief Complaint: (itching, rash). Alert. No acute distress. --20:11 Jennifer Bueno R.N. 19:57 06/24/16. BP: 127/61. HR: 103. RR: 15. O2 saturation: 99% on room air. Temp: 98.4 F (oral). Pain level now: 0/10. --20:11 Jennifer Bueno R.N. Weight: 65.3 kg stated. Height/Length: 60 inches Per Patient. BMI: 28.1. --20:08 Jennifer Bueno R.N. Medications Aspirin Low Dose Oral (Tablet Delayed Release 81 mg) 1 tablet. Carvedilol 3.125mg BID. Docusate Sodium Oral (Capsule 100 mg) 2 capsules, in the evening. FLUoxetine HCl Oral 60mg, at bedtime. Nexium 24HR Oral 22.3mg, at bedtime. --20:04 Jennifer Bueon R.N. Lisinopril Oral (Tablet 5 mg) 1 tablet, daily. --20:04 Jennifer Bueno R.N. PredniSONE Oral (Tablet 10 mg) 4 tablets, daily. --20:05 Jennifer Bueno R.N. Levofloxacin Oral (Tablet 500 mg) 1 tablet. --20:05 Jennifer Bueno R.N. Iron Oral 65mg, 2-3 times daily. --20:06 Jennifer Bueno R.N. Interferon Beta-1a Intramuscular (Kit 30 mcg/0.5mL) 0.5ml, 3 times weekly, last dose 3 nights ago. --20:07 Jennifer Bueno R.N. Ibrance, , breast CA, started will start in 2 days. --20:07 Jennifer Bueno R.N. Allergies Erythromycin. Penicillins. Sulfa Antibiotics. Teramycin?. [place]. --20:02 Jennifer Bueno R.N. History Arrived by private vehicle. Historian: patient. Primary physician (Garrett). ( began hurting 5 days ago, rash began 3 hours ago). This started today. 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 PAST MEDICAL HX: Immunizations: status is unknown. SOCIAL HX: Never smoker. Occasional alcohol use. No drug use. FUNCTIONAL ASSESSMENT: Functional assessment performed: independent with the activities of daily living; uses wheelchair. --20:11 Jennifer Bueno R.N. PROBLEMS: Contusion. Pleural Effusion. Chest Pain. Metastases to bone. Breast Cancer. Sciatica. Gastroesophageal Reflux Disease. --20:09 Jennifer Bueno R.N. ADDITIONAL SURGERIES: Hysterectomy. Lumpectomy of breast. Masiodectomy R ear. Mastoidectomy. --20:09 Jennifer Bueno R.N. Interventions ID band on patient. To treatment room. --20:11 Jennifer Bueno R.N. PHYSICAL ASSESSMENT Ambulatory to room. Patient gowned. GENERAL / NEURO / PSYCH: Alert. Oriented X 4. Appears in no acute distress. HEENT: Mucous membranes are pink. RESPIRATORY: Respirations not labored. CVS: Capillary refill less than 2 seconds. SKIN: Generalized skin rash located on the chest, trunk and abdomen. --20:11 Jennifer Bueno R.N. NURSING PROGRESS NOTES Head of bed elevated. Two patient identifiers checked. Call light placed in reach. Side rails up x 1. Bed placed in lowest position. Brakes of bed on. --20:11 Jennifer Bueno R.N. Patient ready for evaluation- chart flagged. --20:11 Jennifer Bueno R.N. 20:40 06/24/2016 Prednisone PO Tablets 60 mg given. Allergies verified and confirmed 5 rights. --20:44 Ramiro Salas R.N. 20:40 06/24/2016 Benadryl (DiphenhydrAMINE HCl) PO Capsules 50 mg given. Allergies verified, confirmed 5 rights and sedative warning given. --20:44 Ramiro Salas R.N. DISPOSITION / DISCHARGE Condition at departure: unchanged. No learning barriers present. Discharge instructions provided and reviewed with the patient. Reviewed medication(s) side effects, precautions, dosing and course information. Prescription(s) given to the patient. Patient verbalized understanding. Written instructions provided in Bulgarian. The patient was discharged home and accompanied by spouse. She left the Emergency Department ambulatory and via private vehicle. Spouse driving. --21:00 Ramiro Salas R.N. 20:58 06/24/16. BP: deferred. HR: 107. Additional comments: As per patient her HR is between 100-108 normally. --21:00 Ramiro Salas R.N. Locked/Released at 06/24/2016 21:01 by Ramiro Salas R.N.
--- NOTE | 2016-06-24 20:41 | ED NURSING NOTES ---
Clinical Report - Nurses [facility] [address] [place] [address] 06/24/2016 19:52 Patient: NORIS AUSTIN TRIAGE Triage time 19:59. Acuity: LEVEL 4. Chief Complaint: (itching, rash). Alert. No acute distress. --20:11 Jennifer Bueno R.N. 19:57 06/24/16. BP: 127/61. HR: 103. RR: 15. O2 saturation: 99% on room air. Temp: 98.4 F (oral). Pain level now: 0/10. --20:11 Jennifer Bueno R.N. Weight: 65.3 kg stated. Height/Length: 60 inches Per Patient. BMI: 28.1. --20:08 Jennifer Bueno R.N. Medications Aspirin Low Dose Oral (Tablet Delayed Release 81 mg) 1 tablet. Carvedilol 3.125mg BID. Docusate Sodium Oral (Capsule 100 mg) 2 capsules, in the evening. FLUoxetine HCl Oral 60mg, at bedtime. Nexium 24HR Oral 22.3mg, at bedtime. --20:04 Jennifer Bueno R.N. Lisinopril Oral (Tablet 5 mg) 1 tablet, daily. --20:04 Jennifer Bueno R.N. PredniSONE Oral (Tablet 10 mg) 4 tablets, daily. --20:05 Jennifer Bueno R.N. Levofloxacin Oral (Tablet 500 mg) 1 tablet. --20:05 Jennifer Bueno R.N. Iron Oral 65mg, 2-3 times daily. --20:06 Jennifer Bueno R.N. Interferon Beta-1a Intramuscular (Kit 30 mcg/0.5mL) 0.5ml, 3 times weekly, last dose 3 nights ago. --20:07 Jennifer Bueno R.N. Ibrance, , breast CA, started will start in 2 days. --20:07 Jennifer Bueno R.N. Allergies Erythromycin. Penicillins. Sulfa Antibiotics. Teramycin?. [place]. --20:02 Jennifer Bueno R.N. History Arrived by private vehicle. Historian: patient. Primary physician (Gar[place]). ( began hurting 5 days ago, rash began 3 hours ago). This started today. 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 PAST MEDICAL HX: Immunizations: status is unknown. SOCIAL HX: Never smoker. Occasional alcohol use. No drug use. FUNCTIONAL ASSESSMENT: Functional assessment performed: independent with the activities of daily living; uses wheelchair. --20:11 Jennifer Bueno R.N. PROBLEMS: Contusion. Pleural Effusion. Chest Pain. Metastases to bone. Breast Cancer. Sciatica. Gastroesophageal Reflux Disease. --20:09 Jennifer Bueno R.N. ADDITIONAL SURGERIES: Hysterectomy. Lumpectomy of breast. Masiodectomy R ear. Mastoidectomy. --20:09 Jennifer Bueno R.N. Interventions ID band on patient. To treatment room. --20:11 Jennifer Bueno R.N. PHYSICAL ASSESSMENT Ambulatory to room. Patient gowned. GENERAL / NEURO / PSYCH: Alert. Oriented X 4. Appears in no acute distress. HEENT: Mucous membranes are pink. RESPIRATORY: Respirations not labored. CVS: Capillary refill less than 2 seconds. SKIN: Generalized skin rash located on the chest, trunk and abdomen. --20:11 Jennifer Bueno R.N. NURSING PROGRESS NOTES Head of bed elevated. Two patient identifiers checked. Call light placed in reach. Side rails up x 1. Bed placed in lowest position. Brakes of bed on. --20:11 Jennifer Bueno R.N. Patient ready for evaluation- chart flagged. --20:11 Jennifer Bueno R.N. 20:40 06/24/2016 Prednisone PO Tablets 60 mg given. Allergies verified and confirmed 5 rights. --20:44 Ramiro Salas R.N. 20:40 06/24/2016 Benadryl (DiphenhydrAMINE HCl) PO Capsules 50 mg given. Allergies verified, confirmed 5 rights and sedative warning given. --20:44 Ramiro Salas R.N. DISPOSITION / DISCHARGE Condition at departure: unchanged. No learning barriers present. Discharge instructions provided and reviewed with the patient. Reviewed medication(s) side effects, precautions, dosing and course information. Prescription(s) given to the patient. Patient verbalized understanding. Written instructions provided in [place]. The patient was discharged home and accompanied by spouse. She left the Emergency Department ambulatory and via private vehicle. Spouse driving. --21:00 Ramiro Salas R.N. 20:58 06/24/16. BP: deferred. HR: 107. Additional comments: As per patient her HR is between 100-108 normally. --21:00 Ramiro Salas R.N. Locked/Released at 06/24/2016 21:01 by Ramiro Salas R.N.
--- NOTE | 2016-06-24 22:54 | ED MED RECONCILIATION SUMMARY ---
Patient: NORIS AUSTIN Medication Reconciliation Report [facility] VisitID: [id number] [place] [address] 66y, F Registration Date/Time: 06/24/2016 Weight: 65.3 kg Height/Length: 60 in. BMI: 28.1 ALLERGIES: Erythromycin, Penicillins, Sulfa Antibiotics, Teramycin?, [place] The patient's Home Medications are listed below: STOP TAKING THE FOLLOWING MEDICATIONS: Levofloxacin Oral (500 mg) 1 tablet CONTINUE TAKING THE FOLLOWING MEDICATIONS: Aspirin Low Dose Oral (81 mg) 1 tablet Carvedilol 3.125mg BID Docusate Sodium Oral (100 mg) 2 capsules, in the evening FLUoxetine HCl Oral 60mg, at bedtime Ibrance, breast CA Interferon Beta-1a Intramuscular (30 mcg/0.5mL) 0.5ml, 3 times weekly, last dose: 3 nights ago Iron Oral 65mg, 2-3 times daily Lisinopril Oral (5 mg) 1 tablet, daily Nexium 24HR Oral 22.3mg, at bedtime PredniSONE Oral (10 mg) 4 tablets, daily The source(s) of the original Home Medication information: Not obtained. The following Medications were given to the patient in the Emergency Department: Prednisone [PO] PO 60 mg, administered: 06/24/2016 8:40:00 PM Benadryl [PO] PO 50 mg, administered: 06/24/2016 8:40:00 PM The following Medications were prescribed to the patient: Benadryl Allergy 25 mg (available over the counter): take 1-2 orally every 8 hours as needed for itching or allergies. Dispense thirty (30). No refill. Substitution is permissible. -- Siddhartha Garcia DO Prednisone 10 mg tablets: take 4 orally every day for 5 days, then 2 every day for 3 days, then 1 every day for 2 days. Dispense twenty-eight (28). No refills. -- Siddhartha Garcia DO
--- NOTE | 2016-06-24 22:54 | ED MAR SUMMARY ---
..... Medication Administration Record [facility] [address] [place] [address] Patient: NORIS AUSTIN Visit ID: [id number] 66y, F Weight: 65.3 kg Height/Length: 60 in BMI: 28.1 ALLERGIES: Erythromycin, Penicillins, Sulfa Antibiotics, Teramycin?, [place] Given 20:40 06/24/2016 Ramiro Salas R.N. Medication Administered: PREDNISONE [PO], Dose: 60 mg Tablets PO. Medication Ordered: Prednisone PO 60 mg (NOW). Given 20:40 06/24/2016 Ramiro Salas RJenniferNJennifer Medication Administered: BENADRYL [PO] (DIPHENHYDRAMINE HCL), Dose: 50 mg Capsules PO. Medication Ordered: Benadryl PO 50 mg (NOW).
--- NOTE | 2016-06-24 22:54 | ED MAR SUMMARY ---
..... Medication Administration Record [facility] [address] [place] [address] Patient: NORIS AUSTIN Visit ID: [id number] 66y, F Weight: 65.3 kg Height/Length: 60 in BMI: 28.1 ALLERGIES: Erythromycin, Penicillins, Sulfa Antibiotics, Teramycin?, [place] Given 20:40 06/24/2016 Ramiro Salas R.N. Medication Administered: PREDNISONE [PO], Dose: 60 mg Tablets PO. Medication Ordered: Prednisone PO 60 mg (NOW). Given 20:40 06/24/2016 Ramiro Salas RJenniferNJennifer Medication Administered: BENADRYL [PO] (DIPHENHYDRAMINE HCL), Dose: 50 mg Capsules PO. Medication Ordered: Benadryl PO 50 mg (NOW).
--- NOTE | 2016-06-24 22:54 | ED DISCHARGE INSTRUCTIONS ---
Patient: NORIS AUSTIN General Instructions [facility] VisitID: [id number] [place] [address] 66y, F Registration Date/Time: 06/24/2016 Acute hives secondary to allergy and unknown cause. History of metastatic breast cancer. INSTRUCTIONS Drink plenty of fluids. Warnings: Further evaluation is necessary. It is very important to follow up with a physician. SEDATIVE MEDICATION: You were given sedative medication during your visit. Do not drive or operate dangerous machinery. GENERAL WARNINGS: Return or contact your physician immediately if your condition worsens or changes unexpectedly, if not improving as expected, or if other problems arise. Specifically return if breathing difficulty or fever. Your Current Medications: STOP TAKING THE FOLLOWING MEDICATIONS: Levofloxacin Oral : Tablet 500 mg, 1 tablet. CONTINUE TAKING THE FOLLOWING MEDICATIONS: Aspirin Low Dose Oral : Tablet Delayed Release 81 mg, 1 tablet. Carvedilol 3.125mg BID*. Docusate Sodium Oral : Capsule 100 mg, 2 capsules in the evening. FLUoxetine HCl Oral : 60mg at bedtime. Ibrance* : Started: will start in 2 days, breast CA. Interferon Beta-1a Intramuscular : Kit 30 mcg/0.5mL, 0.5ml 3 times weekly, Last: 3 nights ago. Iron Oral : 65mg 2-3 times daily. Lisinopril Oral : Tablet 5 mg, 1 tablet daily. Nexium 24HR Oral : 22.3mg at bedtime. PredniSONE Oral : Tablet 10 mg, 4 tablets daily. Prescription Medications: Prednisone 10 mg tablets: take 4 orally every day for 5 days, then 2 every day for 3 days, then 1 every day for 2 days. Dispense twenty-eight (28). No refills. OTC Medications: Benadryl Allergy 25 mg (available over the counter): take 1-2 orally every 8 hours as needed for itching or allergies. Dispense thirty (30). No refill. Substitution is permissible. Follow-up: Follow up with your doctor tomorrow. ADDITIONAL INFORMATION Hives Hives is an itchy red rash that can appear suddenly and move about your body. It goes away in one place and comes back in another. This is usually caused by something that you are allergic to such as: EATING: fruit, shellfish, chocolate, nuts, tomatoes or medicine BREATHING: pollens, animal hair/fur or mold spores Exposure to cold air, sun rays or exercise can sometimes cause an attack. Many times we cannot find a cause. Medicines can be used to reduce itching and swelling. The rash will usually fade over several days, but can sometimes last up to two weeks. Home Care: 1) Do not wear tight clothing and do not take hot baths/showers since heat can make the itching worse. 2) An ice pack (ice cubes in a plastic bag, wrapped in a towel) will reduce local areas of redness and itching. Lanacaine cream or Solarcaine spray (or other product containing "benzocaine") will reduce itching. 3) Oral Benadryl (diphenhydramine) is an antihistamine available at drug and grocery stores. Unless a prescription antihistamine was given, Benadryl may be used to reduce itching if large areas of the skin are involved. Use lower doses during the daytime and higher doses at bedtime since the drug may make you sleepy. [NOTE: Do not use Benadryl if you have glaucoma or if you are a man with trouble urinating due to an enlarged prostate.] Claritin (loratadine) is an antihistamine that causes less drowsiness and is a good alternative for daytime use. 4) If you know what you are sensitive to, avoid this substance. Future reactions could be worse than this one. Follow Up with your doctor as directed by our staff, if symptoms do not begin to improve in two days. If you have had a severe reaction, or have had several episodes of hives, then ask your doctor about allergy testing to find out what you are allergic to. Get Prompt Medical Attention if any of the following occur: -- Trouble breathing or swallowing -- New or increased swelling in the face, lips, tongue or throat -- Dizziness, weakness or fainting Prednisone Oral tablet What is this medicine? PREDNISONE (PRED ni sone) is a corticosteroid. It is commonly used to treat inflammation of the skin, joints, lungs, and other organs. Common conditions treated include asthma, allergies, and arthritis. It is also used for other conditions, such as blood disorders and diseases of the adrenal glands. How should I use this medicine? Take this medicine by mouth with a glass of water. Follow the directions on the prescription label. Take this medicine with food. If you are taking this medicine once a day, take it in the morning. Do not take more medicine than you are told to take. Do not suddenly stop taking your medicine because you may develop a severe reaction. Your doctor will tell you how much medicine to take. If your doctor wants you to stop the medicine, the dose may be slowly lowered over time to avoid any side effects. Talk to your spectral scientist regarding the use of this medicine in children. Special care may be needed. What side effects may I notice from receiving this medicine? Side effects that you should report to your doctor or health managed care director as soon as possible: allergic reactions like skin rash, itching or hives, swelling of the face, lips, or tongue changes in emotions or moods changes in vision depressed mood eye pain fever or chills, cough, sore throat, pain or difficulty passing urine increased thirst swelling of ankles, feet Side effects that usually do not require medical attention (report to your doctor or health managed care director if they continue or are bothersome): confusion, excitement, restlessness headache nausea, vomiting skin problems, acne, thin and shiny skin trouble sleeping weight gain What may interact with this medicine? Do not take this medicine with any of the following medications: metyrapone mifepristone This medicine may also interact with the following medications: aminoglutethimide amphotericin B aspirin and aspirin-like medicines barbiturates certain medicines for diabetes, like glipizide or glyburide cholestyramine cholinesterase inhibitors cyclosporine digoxin diuretics ephedrine female hormones, like estrogens and control pills isoniazid ketoconazole NSAIDS, medicines for pain and inflammation, like ibuprofen or naproxen phenytoin rifampin toxoids vaccines warfarin What if I miss a dose? If you miss a dose, take it as soon as you can. If it is almost time for your next dose, talk to your doctor or health managed care director. You may need to miss a dose or take an extra dose. Do not take double or extra doses without advice. Where should I keep my medicine? Keep out of the reach of children. Store at room temperature between 15 and 30 degrees C (59 and 86 degrees F). Protect from light. Keep container tightly closed. Throw away any unused medicine after the expiration date. What should I tell my health care provider before I take this medicine? They need to know if you have any of these conditions: Ogden's syndrome diabetes glaucoma heart disease high blood pressure infection (especially a virus infection such as chickenpox, cold sores, or herpes) kidney disease liver disease mental illness myasthenia gravis osteoporosis seizures stomach or intestine problems thyroid disease an unusual or allergic reaction to lactose, prednisone, other medicines, foods, dyes, or preservatives or trying to get breast-feeding What should I watch for while using this medicine? Visit your doctor or health managed care director for regular checks on your progress. If you are taking this medicine over a prolonged period, carry an identification card with your name and address, the type and dose of your medicine, and your doctor's name and address. This medicine may increase your risk of getting an infection. Tell your doctor or health managed care director if you are around anyone with measles or chickenpox, or if you develop sores or blisters that do not heal properly. If you are going to have surgery, tell your doctor or health managed care director that you have taken this medicine within the last twelve months. Ask your doctor or health managed care director about your diet. You may need to lower the amount of salt you eat. This medicine may affect blood sugar levels. If you have diabetes, check with your doctor or health managed care director before you change your diet or the dose of your diabetic medicine. Diphenhydramine Tannate Chewable tablet What is this medicine? DIPHENHYDRAMINE (dye meryl ramírez) is an antihistamine. It is used to treat the symptoms of an allergic reaction. How should I use this medicine? Take this medicine by mouth. Chew it completely before swallowing. Follow the directions on the prescription label. Take your doses at regular intervals. Do not take your medicine more often than directed. Talk to your spectral scientist regarding the use of this medicine in children. While this drug may be prescribed for children as young as 6 years old for selected conditions, precautions do apply. Patients over 65 years old may have a stronger reaction and need a smaller dose. What side effects may I notice from receiving this medicine? Side effects that you should report to your doctor or health managed care director as soon as possible: allergic reactions like skin rash, itching or hives, swelling of the face, lips, or tongue changes in vision confused, agitated, nervous irregular or fast heartbeat tremor trouble passing urine unusual bleeding or bruising unusually weak or tired Side effects that usually do not require medical attention (report to your doctor or health managed care director if they continue or are bothersome): constipation, diarrhea drowsy headache loss of appetite stomach upset, vomiting thick mucous What may interact with this medicine? Do not take this medicine with any of the following medications: MAOIs like Carbex, Eldepryl, Marplan, Nardil, and Parnate This medicine may also interact with the following medications: alcohol barbiturates, like phenobarbital medicines for bladder spasm like oxybutynin, tolterodine medicines for blood pressure medicines for depression, anxiety, or psychotic disturbances medicines for movement abnormalities or Parkinson's disease medicines for sleep other medicines for cold, cough or allergy some medicines for the stomach like chlordiazepoxide, dicyclomine What if I miss a dose? If you miss a dose, take it as soon as you can. If it is almost time for your next dose, take only that dose. Do not take double or extra doses. Where should I keep my medicine? Keep out of the reach of children. Store at room temperature between 15 and 30 degrees C (59 and 86 degrees F). Keep container closed tightly. Throw away any unused medicine after the expiration date. What should I tell my health care provider before I take this medicine? They need to know if you have any of these conditions: glaucoma high blood pressure heart disease liver disease lung or breathing disease, like asthma pain or difficulty passing urine phenylketonuria prostate trouble ulcers or other stomach problems an unusual or allergic reaction to diphenhydramine, sulfites, other medicines foods, dyes, or preservatives or trying to get breast-feeding What should I watch for while using this medicine? Visit your doctor or health managed care director for regular check ups. Tell your doctor or healthcare professional if your symptoms do not start to get better or if they get worse. Your mouth may get dry. Chewing sugarless gum or sucking hard candy, and drinking plenty of water may help. Contact your doctor if the problem does not go away or is severe. This medicine may cause dry eyes and blurred vision. If you wear contact lenses you may feel some discomfort. Lubricating drops may help. See your eye doctor if the problem does not go away or is severe. You may get drowsy or dizzy. Do not drive, use machinery, or do anything that needs mental alertness until you know how this medicine affects you. Do not stand or sit up quickly, especially if you are an older patient. This reduces the risk of dizzy or fainting spells. Alcohol may interfere with the effect of this medicine. Avoid alcoholic drinks. You have been given the following additional information: Hives Prednisone Oral tablet Diphenhydramine Tannate Chewable tablet (Electronically signed by Siddhartha Garcia DO 06/24/2016 22:54)
--- NOTE | 2016-06-24 22:54 | ED DISCHARGE INSTRUCTIONS ---
Patient: NORIS AUSTIN General Instructions [facility] VisitID: [id number] [place] [address] 66y, F Registration Date/Time: 06/24/2016 Acute hives secondary to allergy and unknown cause. History of metastatic breast cancer. INSTRUCTIONS Drink plenty of fluids. Warnings: Further evaluation is necessary. It is very important to follow up with a physician. SEDATIVE MEDICATION: You were given sedative medication during your visit. Do not drive or operate dangerous machinery. GENERAL WARNINGS: Return or contact your physician immediately if your condition worsens or changes unexpectedly, if not improving as expected, or if other problems arise. Specifically return if breathing difficulty or fever. Your Current Medications: STOP TAKING THE FOLLOWING MEDICATIONS: Levofloxacin Oral : Tablet 500 mg, 1 tablet. CONTINUE TAKING THE FOLLOWING MEDICATIONS: Aspirin Low Dose Oral : Tablet Delayed Release 81 mg, 1 tablet. Carvedilol 3.125mg BID*. Docusate Sodium Oral : Capsule 100 mg, 2 capsules in the evening. FLUoxetine HCl Oral : 60mg at bedtime. Ibrance* : Started: will start in 2 days, breast CA. Interferon Beta-1a Intramuscular : Kit 30 mcg/0.5mL, 0.5ml 3 times weekly, Last: 3 nights ago. Iron Oral : 65mg 2-3 times daily. Lisinopril Oral : Tablet 5 mg, 1 tablet daily. Nexium 24HR Oral : 22.3mg at bedtime. PredniSONE Oral : Tablet 10 mg, 4 tablets daily. Prescription Medications: Prednisone 10 mg tablets: take 4 orally every day for 5 days, then 2 every day for 3 days, then 1 every day for 2 days. Dispense twenty-eight (28). No refills. OTC Medications: Benadryl Allergy 25 mg (available over the counter): take 1-2 orally every 8 hours as needed for itching or allergies. Dispense thirty (30). No refill. Substitution is permissible. Follow-up: Follow up with your doctor tomorrow. ADDITIONAL INFORMATION Hives Hives is an itchy red rash that can appear suddenly and move about your body. It goes away in one place and comes back in another. This is usually caused by something that you are allergic to such as: EATING: fruit, shellfish, chocolate, nuts, tomatoes or medicine BREATHING: pollens, animal hair/fur or mold spores Exposure to cold air, sun rays or exercise can sometimes cause an attack. Many times we cannot find a cause. Medicines can be used to reduce itching and swelling. The rash will usually fade over several days, but can sometimes last up to two weeks. Home Care: 1) Do not wear tight clothing and do not take hot baths/showers since heat can make the itching worse. 2) An ice pack (ice cubes in a plastic bag, wrapped in a towel) will reduce local areas of redness and itching. Lanacaine cream or Solarcaine spray (or other product containing "benzocaine") will reduce itching. 3) Oral Benadryl (diphenhydramine) is an antihistamine available at drug and grocery stores. Unless a prescription antihistamine was given, Benadryl may be used to reduce itching if large areas of the skin are involved. Use lower doses during the daytime and higher doses at bedtime since the drug may make you sleepy. [NOTE: Do not use Benadryl if you have glaucoma or if you are a man with trouble urinating due to an enlarged prostate.] Claritin (loratadine) is an antihistamine that causes less drowsiness and is a good alternative for daytime use. 4) If you know what you are sensitive to, avoid this substance. Future reactions could be worse than this one. Follow Up with your doctor as directed by our staff, if symptoms do not begin to improve in two days. If you have had a severe reaction, or have had several episodes of hives, then ask your doctor about allergy testing to find out what you are allergic to. Get Prompt Medical Attention if any of the following occur: -- Trouble breathing or swallowing -- New or increased swelling in the face, lips, tongue or throat -- Dizziness, weakness or fainting Prednisone Oral tablet What is this medicine? PREDNISONE (PRED ni sone) is a corticosteroid. It is commonly used to treat inflammation of the skin, joints, lungs, and other organs. Common conditions treated include asthma, allergies, and arthritis. It is also used for other conditions, such as blood disorders and diseases of the adrenal glands. How should I use this medicine? Take this medicine by mouth with a glass of water. Follow the directions on the prescription label. Take this medicine with food. If you are taking this medicine once a day, take it in the morning. Do not take more medicine than you are told to take. Do not suddenly stop taking your medicine because you may develop a severe reaction. Your doctor will tell you how much medicine to take. If your doctor wants you to stop the medicine, the dose may be slowly lowered over time to avoid any side effects. Talk to your collateral analyst regarding the use of this medicine in children. Special care may be needed. What side effects may I notice from receiving this medicine? Side effects that you should report to your doctor or health child care leader as soon as possible: allergic reactions like skin rash, itching or hives, swelling of the face, lips, or tongue changes in emotions or moods changes in vision depressed mood eye pain fever or chills, cough, sore throat, pain or difficulty passing urine increased thirst swelling of ankles, feet Side effects that usually do not require medical attention (report to your doctor or health child care leader if they continue or are bothersome): confusion, excitement, restlessness headache nausea, vomiting skin problems, acne, thin and shiny skin trouble sleeping weight gain What may interact with this medicine? Do not take this medicine with any of the following medications: metyrapone mifepristone This medicine may also interact with the following medications: aminoglutethimide amphotericin B aspirin and aspirin-like medicines barbiturates certain medicines for diabetes, like glipizide or glyburide cholestyramine cholinesterase inhibitors cyclosporine digoxin diuretics ephedrine female hormones, like estrogens and control pills isoniazid ketoconazole NSAIDS, medicines for pain and inflammation, like ibuprofen or naproxen phenytoin rifampin toxoids vaccines warfarin What if I miss a dose? If you miss a dose, take it as soon as you can. If it is almost time for your next dose, talk to your doctor or health child care leader. You may need to miss a dose or take an extra dose. Do not take double or extra doses without advice. Where should I keep my medicine? Keep out of the reach of children. Store at room temperature between 15 and 30 degrees C (59 and 86 degrees F). Protect from light. Keep container tightly closed. Throw away any unused medicine after the expiration date. What should I tell my health care provider before I take this medicine? They need to know if you have any of these conditions: [place]'s syndrome diabetes glaucoma heart disease high blood pressure infection (especially a virus infection such as chickenpox, cold sores, or herpes) kidney disease liver disease mental illness myasthenia gravis osteoporosis seizures stomach or intestine problems thyroid disease an unusual or allergic reaction to lactose, prednisone, other medicines, foods, dyes, or preservatives or trying to get breast-feeding What should I watch for while using this medicine? Visit your doctor or health child care leader for regular checks on your progress. If you are taking this medicine over a prolonged period, carry an identification card with your name and address, the type and dose of your medicine, and your doctor's name and address. This medicine may increase your risk of getting an infection. Tell your doctor or health child care leader if you are around anyone with measles or chickenpox, or if you develop sores or blisters that do not heal properly. If you are going to have surgery, tell your doctor or health child care leader that you have taken this medicine within the last twelve months. Ask your doctor or health child care leader about your diet. You may need to lower the amount of salt you eat. This medicine may affect blood sugar levels. If you have diabetes, check with your doctor or health child care leader before you change your diet or the dose of your diabetic medicine. Diphenhydramine Tannate Chewable tablet What is this medicine? DIPHENHYDRAMINE (dye meryl ramírez) is an antihistamine. It is used to treat the symptoms of an allergic reaction. How should I use this medicine? Take this medicine by mouth. Chew it completely before swallowing. Follow the directions on the prescription label. Take your doses at regular intervals. Do not take your medicine more often than directed. Talk to your collateral analyst regarding the use of this medicine in children. While this drug may be prescribed for children as young as 6 years old for selected conditions, precautions do apply. Patients over 65 years old may have a stronger reaction and need a smaller dose. What side effects may I notice from receiving this medicine? Side effects that you should report to your doctor or health child care leader as soon as possible: allergic reactions like skin rash, itching or hives, swelling of the face, lips, or tongue changes in vision confused, agitated, nervous irregular or fast heartbeat tremor trouble passing urine unusual bleeding or bruising unusually weak or tired Side effects that usually do not require medical attention (report to your doctor or health child care leader if they continue or are bothersome): constipation, diarrhea drowsy headache loss of appetite stomach upset, vomiting thick mucous What may interact with this medicine? Do not take this medicine with any of the following medications: MAOIs like Carbex, Eldepryl, Marplan, Nardil, and Parnate This medicine may also interact with the following medications: alcohol barbiturates, like phenobarbital medicines for bladder spasm like oxybutynin, tolterodine medicines for blood pressure medicines for depression, anxiety, or psychotic disturbances medicines for movement abnormalities or Parkinson's disease medicines for sleep other medicines for cold, cough or allergy some medicines for the stomach like chlordiazepoxide, dicyclomine What if I miss a dose? If you miss a dose, take it as soon as you can. If it is almost time for your next dose, take only that dose. Do not take double or extra doses. Where should I keep my medicine? Keep out of the reach of children. Store at room temperature between 15 and 30 degrees C (59 and 86 degrees F). Keep container closed tightly. Throw away any unused medicine after the expiration date. What should I tell my health care provider before I take this medicine? They need to know if you have any of these conditions: glaucoma high blood pressure heart disease liver disease lung or breathing disease, like asthma pain or difficulty passing urine phenylketonuria prostate trouble ulcers or other stomach problems an unusual or allergic reaction to diphenhydramine, sulfites, other medicines foods, dyes, or preservatives or trying to get breast-feeding What should I watch for while using this medicine? Visit your doctor or health child care leader for regular check ups. Tell your doctor or healthcare professional if your symptoms do not start to get better or if they get worse. Your mouth may get dry. Chewing sugarless gum or sucking hard candy, and drinking plenty of water may help. Contact your doctor if the problem does not go away or is severe. This medicine may cause dry eyes and blurred vision. If you wear contact lenses you may feel some discomfort. Lubricating drops may help. See your eye doctor if the problem does not go away or is severe. You may get drowsy or dizzy. Do not drive, use machinery, or do anything that needs mental alertness until you know how this medicine affects you. Do not stand or sit up quickly, especially if you are an older patient. This reduces the risk of dizzy or fainting spells. Alcohol may interfere with the effect of this medicine. Avoid alcoholic drinks. You have been given the following additional information: Hives Prednisone Oral tablet Diphenhydramine Tannate Chewable tablet (Electronically signed by Siddhartha Garcia DO 06/24/2016 22:54)
--- NOTE | 2016-06-24 22:54 | ED MED RECONCILIATION SUMMARY ---
Patient: NORIS AUSTIN Medication Reconciliation Report [facility] VisitID: [id number] [place] [address] 66y, F Registration Date/Time: 06/24/2016 Weight: 65.3 kg Height/Length: 60 in. BMI: 28.1 ALLERGIES: Erythromycin, Penicillins, Sulfa Antibiotics, Teramycin?, [place] The patient's Home Medications are listed below: STOP TAKING THE FOLLOWING MEDICATIONS: Levofloxacin Oral (500 mg) 1 tablet CONTINUE TAKING THE FOLLOWING MEDICATIONS: Aspirin Low Dose Oral (81 mg) 1 tablet Carvedilol 3.125mg BID Docusate Sodium Oral (100 mg) 2 capsules, in the evening FLUoxetine HCl Oral 60mg, at bedtime Ibrance, breast CA Interferon Beta-1a Intramuscular (30 mcg/0.5mL) 0.5ml, 3 times weekly, last dose: 3 nights ago Iron Oral 65mg, 2-3 times daily Lisinopril Oral (5 mg) 1 tablet, daily Nexium 24HR Oral 22.3mg, at bedtime PredniSONE Oral (10 mg) 4 tablets, daily The source(s) of the original Home Medication information: Not obtained. The following Medications were given to the patient in the Emergency Department: Prednisone [PO] PO 60 mg, administered: 06/24/2016 8:40:00 PM Benadryl [PO] PO 50 mg, administered: 06/24/2016 8:40:00 PM The following Medications were prescribed to the patient: Benadryl Allergy 25 mg (available over the counter): take 1-2 orally every 8 hours as needed for itching or allergies. Dispense thirty (30). No refill. Substitution is permissible. -- Siddhartha Garcia DO Prednisone 10 mg tablets: take 4 orally every day for 5 days, then 2 every day for 3 days, then 1 every day for 2 days. Dispense twenty-eight (28). No refills. -- Siddhartha Garcia DO
== END 2016-06-24 20:58 | disposition home or self-care (01) ==
LOC: ED SRH 19:53
DX: L50.0 Allergic urticaria (principal); Z85.3 Personal history of malignant neoplasm of breast; K21.9 Gastro-esophageal reflux disease without esophagitis; Z90.710 Acquired absence of both cervix and uterus; Z79.82 Long term (current) use of aspirin; Z79.899 Other long term (current) drug therapy; Z88.0 Allergy status to penicillin; Z88.2 Allergy status to sulfonamides; Z88.1 Allergy status to other antibiotic agents
CPT/HCPCS: 90074; 90100; 90648; 93140; 95059

== ENCOUNTER 2016-07-01 10:50 | Outpatient (CLI) | payer OTHER | END 2016-07-01 23:00 | LOC: LAB SRH 10:50 | DX: C50.912 Malignant neoplasm of unspecified site of left female breast (principal); C79.51 Secondary malignant neoplasm of bone; C78.00 Secondary malignant neoplasm of unspecified lung | CPT/HCPCS: 90074; 90100; 95059 ==

== ENCOUNTER 2016-07-08 10:20 | Outpatient (CLI) | payer OTHER | END 2016-07-08 23:00 | LOC: LAB SRH 10:20 | DX: C50.912 Malignant neoplasm of unspecified site of left female breast (principal); C79.51 Secondary malignant neoplasm of bone; C78.00 Secondary malignant neoplasm of unspecified lung | CPT/HCPCS: 90074; 90100; 90272; 95059 ==

== ENCOUNTER 2016-07-15 15:12 | Outpatient (CLI) | payer OTHER | END 2016-07-15 23:00 | LOC: LAB SRH 15:12 | DX: C50.912 Malignant neoplasm of unspecified site of left female breast (principal); C79.51 Secondary malignant neoplasm of bone; C78.00 Secondary malignant neoplasm of unspecified lung | CPT/HCPCS: 90100; 95059 ==

== ENCOUNTER 2016-07-22 09:32 | Outpatient (CLI) | payer OTHER | END 2016-07-22 23:00 | LOC: LAB SRH 09:32 | DX: C50.912 Malignant neoplasm of unspecified site of left female breast (principal); C79.51 Secondary malignant neoplasm of bone; C78.00 Secondary malignant neoplasm of unspecified lung | CPT/HCPCS: 90074; 90100; 95059 ==

== ENCOUNTER 2016-07-29 12:07 | Outpatient (CLI) | payer OTHER | END 2016-07-29 23:00 | LOC: LAB SRH 12:07 | DX: C50.912 Malignant neoplasm of unspecified site of left female breast (principal); C79.51 Secondary malignant neoplasm of bone; C78.00 Secondary malignant neoplasm of unspecified lung | CPT/HCPCS: 90074; 90100; 91643; 95059 ==

== ENCOUNTER 2016-08-05 10:52 | Outpatient (CLI) | payer OTHER | END 2016-08-05 23:00 | LOC: LAB SRH 10:52 | DX: C50.912 Malignant neoplasm of unspecified site of left female breast (principal); C79.51 Secondary malignant neoplasm of bone; C78.00 Secondary malignant neoplasm of unspecified lung | CPT/HCPCS: 90074; 90100; 91643; 95059 ==

== ENCOUNTER 2016-08-12 10:55 | Outpatient (CLI) | payer OTHER | END 2016-08-12 23:00 | LOC: LAB SRH 10:55 | DX: C78.00 Secondary malignant neoplasm of unspecified lung (principal); C50.912 Malignant neoplasm of unspecified site of left female breast; C79.51 Secondary malignant neoplasm of bone | CPT/HCPCS: 90074; 90100; 90272; 91643; 95059 ==

== ENCOUNTER 2016-08-26 10:49 | Outpatient (CLI) | payer OTHER | END 2016-08-26 23:00 | disposition home or self-care (01) | LOC: LAB SRH 10:49 | DX: C50.912 Malignant neoplasm of unspecified site of left female breast (principal); C79.51 Secondary malignant neoplasm of bone; C78.00 Secondary malignant neoplasm of unspecified lung | CPT/HCPCS: 90074; 90100; 95059 ==

== ENCOUNTER → 2016-09-02 | Outpatient (CLI) | payer OTHER | LOC: LAB SRH 08:27 | DX: C50.912 Malignant neoplasm of unspecified site of left female breast (principal); C79.51 Secondary malignant neoplasm of bone; C78.00 Secondary malignant neoplasm of unspecified lung | CPT/HCPCS: 90074; 90100; 91643; 95059 ==

== ENCOUNTER 2016-09-10 10:38 | Outpatient (CLI) | payer OTHER | END 2016-09-10 23:00 | disposition home or self-care (01) | LOC: LAB SRH 10:38 | DX: C50.912 Malignant neoplasm of unspecified site of left female breast (principal); C79.51 Secondary malignant neoplasm of bone; C78.00 Secondary malignant neoplasm of unspecified lung | CPT/HCPCS: 90074; 90100; 90272; 91282; 91643; 92668; 92670; 95059 ==